=== PATIENT | female | born 1970 | race Hispanic/Latino ===

== ENCOUNTER 2019-04-08 07:17 | Emergency (ER) | payer OTHER ==
[2019-04-08] MEDS ORDERED: KETOROLAC 30 MG/ML INJ ONE (07:35)
[2019-04-08] MEDS ORDERED: dexAMETHasone 10 MG/ML VIAL ONE (07:35)
--- NOTE | 2019-04-08 07:45 | ER ---
Nurse's Notes [facility] Name: Pat Johnson Age: 48 yrs Sex: Female : 1970 Arrival Date: 04/08/2019 Time: 07:21 Bed 19 Private MD: Jaguar Stewart Diagnosis: Intervertebral disc disorders with radiculopathy, lumbar region;Muscle spasm of back Presentation: 04/08 07:25 Presenting complaint: Patient states: yunior been having this L lower back pain for a hj while and yunior been taking ibuprofen and its not helping, its on and off pain; denies N/V;. Transition of care: patient was not received from another setting of care. Onset of symptoms was April 08, 2019. Risk Assessment: Do you want to hurt yourself or someone else? Patient reports no desire to harm self or others. Initial Sepsis Screen: Does the patient meet any 2 criteria? No. Patient's initial sepsis screen is negative. Does the patient have a suspected source of infection? No. Patient's initial sepsis screen is negative. Care prior to arrival: None. 07:25 Method Of Arrival: Ambulatory 07:25 Acuity: CHRISTEL 4 hj Triage Assessment: 07:27 General: Appears in no apparent distress. uncomfortable, obese, Behavior is calm, hj cooperative, appropriate for age. Pain: Complains of pain in back. Musculoskeletal: Circulation, motion, and sensation intact. Capillary refill. Historical: - Allergies: 07:32 No Known Allergies; hj - Home Meds: 07:32 Vitamin D Oral [Active]; hj - PMHx: 07:32 None; hj - PSHx: 07:32 None; hj - Immunization history:: Adult Immunizations up to date. - Social history:: Smoking status: Patient/guardian denies using tobacco, Patient/guardian denies using alcohol. - Ebola Screening: : Patient negative for fever greater than or equal to 101.5 degrees Fahrenheit, and additional compatible Ebola Virus Disease symptoms Patient denies exposure to infectious person Patient denies travel to an Ebola-affected area in the 21 days before illness onset. - Family history:: not pertinent. - Hospitalizations: : No recent hospitalization is reported. Screenin:27 Abuse screen: Denies threats or abuse. Denies injuries from another. Nutritional hj screening: No deficits noted. Tuberculosis screening: No symptoms or risk factors identified. Fall Risk None identified. Vital Signs: 07:26 BP 161 / 97; Pulse 73; Resp 18; Temp 97.9(TE); Pulse Ox 97% on R/A; Weight 113.4 kg; hj Height 5 ft. 1 in. (154.94 cm); Pain 5/10; 07:26 Body Mass Index 47.24 (113.40 kg, 154.94 cm) hj ED Course: 07:21 Patient arrived in ED. mr 07:21 Jaguar Stewart DO is Private Physician. mr 07:21 Khadar Lorenzo MD is Attending Physician. rn 07:25 Rich Lozano RN is Primary Nurse. hj 07:26 Triage completed. hj 07:28 Arm band placed on left wrist. hj 07:28 Patient has correct armband on for positive identification. Bed in low position. Call hj light in reach. Side rails up X 1. Adult w/ patient. 08:09 No provider procedures requiring assistance completed. Patient did not have IV access hj during this emergency room visit. Administered Medications: 07:33 Drug: TORadol - Ketorolac 15 mg Route: IM; Site: right deltoid; hj 08:09 Follow up: Response: No adverse reaction hj 07:33 Drug: Decadron 10 mg Route: IM; Site: right deltoid; hj 08:09 Follow up: Response: No adverse reaction hj Outcome: 07:45 Discharge ordered by . rn 08:10 Discharged to home ambulatory, with family. hj 08:10 Condition: stable 08:10 Discharge instructions given to patient, family, Instructed on discharge instructions, follow up and referral plans. medication usage, Demonstrated understanding of instructions, follow-up care, medications, Prescriptions given X 2. 08:11 Patient left the ED. hj Signatures: Linda Butts mr Khadar Lorenzo MD MD rn Joaquin, Henry, RN RN hj Corrections: (The following items were deleted from the chart) 07:33 07:26 BP 161 / 97; Pulse 73bpm; Resp 18bpm; Pulse Ox 97% RA; Temp 97.9F Temporal; hj 127.01 kg; Height 5 ft. 3 in.; BMI: 49.6; Pain 5/10; hj
--- NOTE | 2019-04-08 07:46 | EDPHYS ---
Physician Documentation [facility] Name: Pat Johnson Age: 48 yrs Sex: Female : 1970 Arrival Date: 04/08/2019 Time: 07:21 Bed 19 Private MD: Jaguar Stewart ED Physician Khadar Lorenzo HPI: 04/08 07:40 This 48 yrs old Female presents to ER via Ambulatory with complaints of Back rn Pain. 07:40 The patient presents with pain that is chronic. The symptoms are located in the low rn back. Onset: The symptoms/episode began/occurred 3 day(s) ago. The pain radiates to the left leg. Associated signs and symptoms: Pertinent negatives: abdominal pain, chest pain, constipation, fever, incontinence, numbness, tingling, urinary retention, vomiting, weakness. Modifying factors: The patient symptoms are alleviated by nothing, the patient symptoms are aggravated by movement. Severity of symptoms: At their worst the symptoms were mild, in the emergency department the symptoms are unchanged. The patient has experienced similar episodes in the past. REports intermittent back pain for months, no injury, reports hurts for days then gets better, works on her feet and constantly leaning towards affected side, no bowel/bladder issues, no weakness, no fever, no urinary symptoms. Hurts to twist and lift left leg.. Historical: - Allergies: 07:32 No Known Allergies; hj - Home Meds: 07:32 Vitamin D Oral [Active]; hj - PMHx: 07:32 None; hj - PSHx: 07:32 None; hj - Immunization history:: Adult Immunizations up to date. - Social history:: Smoking status: Patient/guardian denies using tobacco, Patient/guardian denies using alcohol. - Ebola Screening: : Patient negative for fever greater than or equal to 101.5 degrees Fahrenheit, and additional compatible Ebola Virus Disease symptoms Patient denies exposure to infectious person Patient denies travel to an Ebola-affected area in the 21 days before illness onset. - Family history:: not pertinent. - Hospitalizations: : No recent hospitalization is reported. ROS: 07:40 Constitutional: Negative for fever, chills, and weight loss, Neck: Negative for injury, rn pain, and swelling, Cardiovascular: Negative for chest pain, palpitations, and edema, Respiratory: Negative for shortness of breath, cough, wheezing, and pleuritic chest pain, Abdomen/GI: Negative for abdominal pain, nausea, vomiting, diarrhea, and constipation, Back: + left lower back pain : Negative for injury, bleeding, discharge, and swelling, MS/Extremity: Negative for injury and deformity, Skin: Negative for injury, rash, and discoloration, Neuro: Negative for headache, weakness, numbness, tingling, and seizure. Exam: 07:40 Constitutional: This is a well developed, well nourished patient who is awake, alert, rn and in no acute distress. Cardiovascular: Regular rate and rhythm. No pulse deficits. Respiratory: No increased work of breathing, no retractions or nasal flaring. Abdomen/GI: soft, non-tender Back: No spinal tenderness. No costovertebral tenderness. + left lower perilumbar tenderness, no swelling, no signs of trauma. Skin: Warm, dry with normal turgor. Normal color with no rashes, no lesions, and no evidence of cellulitis. MS/ Extremity: Pulses equal, no cyanosis. Neurovascular intact. Full, normal range of motion. Equal circumference. Neuro: Awake and alert, GCS 15, oriented to person, place, time, and situation. Cranial nerves II-XII grossly intact. Motor strength 5/5 in all extremities. Sensory grossly intact. Cerebellar exam normal. Vital Signs: 07:26 BP 161 / 97; Pulse 73; Resp 18; Temp 97.9(TE); Pulse Ox 97% on R/A; Weight 113.4 kg; hj Height 5 ft. 1 in. (154.94 cm); Pain 5/10; 07:26 Body Mass Index 47.24 (113.40 kg, 154.94 cm) MDM: 07:21 Patient medically screened. rn 07:40 Differential diagnosis: arthritis, chronic back pain, sprain, bulging disc, rn radiculopathy. Data reviewed: vital signs, nurses notes, and as a result, I will discharge patient. Counseling: I had a detailed discussion with the patient and/or guardian regarding: the historical points, exam findings, and any diagnostic results supporting the discharge/admit diagnosis, the need for outpatient follow up, to return to the emergency department if symptoms worsen or persist or if there are any questions or concerns that arise at home. Response to treatment: the patient's symptoms have mildly improved after treatment, and as a result, I will discharge patient. Special discussion: I discussed with the patient/guardian in detail that at this point there is no indication for admission to the hospital. It is understood, however, that if the symptoms persist or worsen the patient needs to return immediately for re-evaluation. Administered Medications: 07:33 Drug: TORadol - Ketorolac 15 mg Route: IM; Site: right deltoid; hj 08:09 Follow up: Response: No adverse reaction hj 07:33 Drug: Decadron 10 mg Route: IM; Site: right deltoid; hj 08:09 Follow up: Response: No adverse reaction hj Disposition: 04/08/19 07:45 Discharged to Home. Impression: Intervertebral disc disorders with radiculopathy, lumbar region, Muscle spasm of back. - Condition is Stable. - Discharge Instructions: Lumbosacral Radiculopathy, Muscle Cramps and Spasms, Back Exercises, [id number]. - Prescriptions for Tramadol 50 mg Oral Tablet - take 1 tablet by ORAL route every 8 hours as needed; 15 tablet. Medrol (Julio) 4 mg Oral Tablets, Dose Pack - take 1 tablet by ORAL route as directed - follow package instructions; 1 packet. - Medication Reconciliation Form, Thank You Letter, Antibiotic Education, Prescription Opioid Use, Work release form form. - Follow up: Private Physician; When: As needed; Reason: Recheck today's complaints, Re-evaluation by your physician. - Problem is new. - Symptoms have improved. Signatures: Khadar Lorenzo MD MD rn Joaquin, Henry, RN RN Corrections: (The following items were deleted from the chart) 07:41 07:40 REports intermittent back pain for months, no injury, reports hurts for days then rn gets better, works on her feet and constantly leaning towards affected side, no bowel/bladder issues, no weakness, no fever, no urinary symptoms. . rn 07:43 07:40 Constitutional: This is a well developed, well nourished patient who is awake, rn alert, and in no acute distress. Abdomen/GI: soft, non-tender Back: No spinal tenderness. No costovertebral tenderness. + left lower perilumbar tenderness, no swelling, no signs of trauma. Skin: Warm, dry with normal turgor. Normal color with no rashes, no lesions, and no evidence of cellulitis. MS/ Extremity: Pulses equal, no cyanosis. Neurovascular intact. Full, normal range of motion. Equal circumference. Neuro: Awake and alert, GCS 15, oriented to person, place, time, and situation. Cranial nerves II-XII grossly intact. Motor strength 5/5 in all extremities. Sensory grossly intact. Cerebellar exam normal. susanna 08:11 07:45 04/08/2019 07:45 Discharged to Home. Impression: Intervertebral disc disorders hj with radiculopathy, lumbar region; Muscle spasm of back. Condition is Stable. Forms are Medication Reconciliation Form, Thank You Letter, Antibiotic Education, Prescription Opioid Use. Follow up: Private Physician; When: As needed; Reason: Recheck today's complaints, Re-evaluation by your physician. Problem is new. Symptoms have improved. rn
== END 2019-04-08 08:11 | disposition home or self-care (01) ==
LOC: ER 07:17
DX: M51.16 Intervertebral disc disorders with radiculopathy, lumbar region (principal); M62.830 Muscle spasm of back
CPT/HCPCS: 96372; 99283; J1100

== ENCOUNTER 2022-07-25 07:32 | Emergency (ER) | payer OTHER ==
--- OUTSIDE RECORDS SUMMARY | 2022-07-25 07:34 | XMS REPORT | Continuity of Care Document ---
:1970 Author Organization [facility] t Address [address] [place] [address] Care Team Providers Name Role Phone Ann Campbell Attending Clinician Unavailable KNOW, DOES_NOT Admitting Clinician Unavailable Payers Payer Name Policy Type Policy Number Effective Date Expiration Date S ource Problems This patient has no known problems. Allergies, Adverse Reactions, Alerts This patient has no known allergies or adverse reactions. Medications This patient has no known medications. Procedures This patient has no known procedures. Encounters Start End Encounter Admission Attending Care Care Encounter Source Date/Time Date/Time Type Type Clinicians Facility Department ID 2020-10-01 Inpatient PONCE StanleyWU [facility] [id number] [facility] 10:12:[address] [place] [address] Results Test Description Test Time Test Comments Results Result Sour e Comments - US ABDOMEN 2020-10-14 COMPLETE 11:19:00 [facility] 1970 Sex: F Patient Name: MARIANNE TEE Unit No: [id number] EXAMS: CPT CODE: [id number] US ABDOMEN COMPLETE [id number] EXAMINATION: - US ABDOMEN COMPLETE. LOCATION: B2. HISTORY: ABNORMAL LFTS. COMPARISON: None. TECHNIQUE: Ultrasound imaging of the liver, gallbladder, biliary tract, spleen, pancreas, kidneys, aorta, and IVC was performed. FINDINGS: The liver is normal in size, measuring 16.7 cm in length. There is heterogenous hepatic echotexture. No focal liver masses are identified. The main portal vein is patent and demonstrates appropriate direction of flow. The gallbladder is normal in size. Gallbladder wall thickness is within normal limits. Mild layering sludge is seen in the gallbladder. There are no shadowing gallstones or pericholecystic fluid. There is no intra or extrahepatic bile duct dilatation with the common bile duct measuring 4.2 mm. The spleen measures 10.2 cm in length, which is within normal limits. The pancreas is not well-visualized due to overlying bowel gas. The visualized portions of the abdominal aorta and IVC are normal in caliber. The kidneys are normal in size. The right kidney measures 11.3 cm, and the left kidney measures 11.2 cm in length. There is no evidence of renal mass, hydronephrosis or urolithiasis. IMPRESSION: Heterogenous hepatic echotexture, which limits evaluation for liver masses. Mild layering sludge in the gallbladder. at 1119 Reported and signed by: Adam Pryor MD CC: Ann Campbell Technologist: Zofia Aguirre [facility] Transcrpt Date/Tm/Trnsp: 10/14/2020 (1119) [email or web address] Orig Print D/T: S: 10/14/2020 (1122) [facility] NAME: MARIANNE TEE [id number] [facility] [address] PHYS: [place] [address] : 1970 AGE: 50 SEX: F LOC: [facility] PHONE #: [phone] EXAM DATE: 10/14/2020 STATUS: REG CLI FAX #: [phone] RADIOLOGY NO: PAGE 1 Signed Report
[2022-07-25 08:26] LABS: Absolute Lymphocytes (CBC) 1.5 K/uL (0.7-4.9); Hematocrit 40.1 % (36.0-45.0); Lymphocytes % 22.6 % (15.3-44.8); MPV 7.7 fL (7.6-11.3); RBC Red Blood Cell Count 4.55 M/uL (3.86-4.86)
[2022-07-25 08:44] LABS: Potassium 3.8 mmol/L (3.5-5.1); Troponin High Sensitivity 5.1 pg/mL (<58.9)
--- NOTE | 2022-07-25 08:55 | RAD REPORT ---
EXAM DESCRIPTION: RAD - Chest Single View - 07/25/2022 8:32 am CLINICAL HISTORY: CHEST PAIN COMPARISON: None TECHNIQUE: AP portable chest image was obtained 07/25/2022 8:32 am . FINDINGS: Lungs are clear. Mild cardiomegaly present without vascular engorgement. Heart size is mag nified by portable technique and body habitus affects. No measurable pleural effusion and no pneumothorax. No acute bony abnormality seen. No acute aortic findings suspected. IMPRESSION: No acute cardiopulmonary process. Mild cardiomegaly is evident without findings of acute failure or volume overload.
--- NOTE | 2022-07-25 10:03 | RAD REPORT ---
EXAM DESCRIPTION: CT - Angio Aorta For Dissection - 07/25/2022 9:25 am CLINICAL HISTORY: right sided chest pain, back pain COMPARISON: Chest exam 07/25/2022 TECHNIQUE: Dynamically enhanced 3 mm thick images of the chest, abdomen, and pelvis were obtained du ring administration of approximately 150mL Isovue 370 IV contrast. Sagittal and coronal reconstructio n images were generated using MIP and reviewed. Exam utilizes a protocol to evaluate entire course of the aorta. All CT scans are performed using dose optimization technique as appropriate and may include automated exposure control or mA/KV adjustment according to patient size. FINDINGS: Aorta is normal in diameter with no dissection or other acute aortic findings. Reconstruct ion images show no significant findings. Pulmonary arteries are normal as well. Heart size is upper normal. No pericardial thickening or effus ion. No mass or infiltrate in the lung parenchyma. No pleural thickening, pleural effusion or pneumothorax . No abnormal mediastinal or hilar mass or lymphadenopathy seen. No chest wall mass or abnormal axillar y lymphadenopathy. Celiac, SMA and renal arteries show no suspicious findings. Solid abdominal viscera and bowel show no significant findings. No mass or abnormal lymphadenopathy. No free air, free fluid or inflammatory stranding. No urinary bladder abnormality. Minimal degenerative change present in the thoracic spine. No acute vertebral body finding. Central c anal detail is inherently limited. Heterogeneous attenuation in the IVC and portal vein is the affect s of mixture between contrast and noncontrast opacified blood. Thrombus is not suspected in these ves sels. IMPRESSION: Negative CT scan of the aorta. No other significant findings on chest, abdomen and pelvis examination.
--- NOTE | 2022-07-25 10:24 | EDPHYS ---
Physician Documentation [facility] Name: Pat Johnson Age: 52 yrs Sex: Female : 1970 Arrival Date: 07/25/2022 Time: 07:37 Bed 13 Private MD: ED Physician Yonis Liang HPI: 07/25 07:52 This 52 yrs old Female presents to ER via Ambulatory with complaints of Chest jmm Pain > 30 y/o - right side radiating to back. 07:52 The patient or guardian reports chest pain that is located primarily in the substernal jmm area. Onset: gradually, this morning. The pain radiates to right back. Associated signs and symptoms: Pertinent negatives: abdominal pain, shortness of breath. The chest pain is described as aching. This is a 52 year old female that presents to the ED with complaints of substernal chest pain with radiation into the right scapular region. Denies abdominal pain, vomiting. Denies cough or fever. . OFFICE MANAGER: 07:51 LMP N/A - Hysterectomy 7 Historical: - Allergies: 07:51 No Known Allergies; jl7 - Home Meds: 07:51 None [Active]; jl7 - PMHx: 07:51 None; jl7 - PSHx: 07:51 section; Total abdominal hysterectomy; jl7 - Immunization history:: Client reports receiving the 2nd dose of the Covid vaccine. - Social history:: Smoking status: Patient denies any tobacco usage or history of. ROS: 07:52 Constitutional: Negative for fever, chills, and weight loss. jmm 07:52 Cardiovascular: Positive for chest pain. 07:52 All other systems are negative. Exam: 07:52 Constitutional: This is a well developed, well nourished patient who is awake, alert, jmm and in no acute distress. Head/Face: atraumatic. Eyes: EOMI, no conjunctival erythema appreciated ENT: Moist Mucus Membranes Neck: Trachea midline, Supple Chest/axilla: Normal chest wall appearance and motion. Cardiovascular: Regular rate and rhythm. No edema appreciated Respiratory: Normal respirations, no respiratory distress appreciated Abdomen/GI: Non distended Back: Normal ROM Skin: General appearance color normal MS/ Extremity: Moves all extremities, no obvious deformities appreciated, no edema noted to the lower extremities Neuro: Awake and alert Psych: Behavior is normal, Mood is normal, Patient is cooperative and pleasant Vital Signs: 07:50 BP 154 / 84; Pulse 77; Resp 17; Temp 97.9; Pulse Ox 95% ; Weight 109.77 kg; Height 5 [facility] ft. 1 in. (154.94 cm); Pain 10; 08:00 BP 163 / 83; Pulse 71; Pulse Ox 99% on R/A; ko1 08:30 BP 191 / 92; Pulse 73; Pulse Ox 99% on R/A; ko1 10:55 BP 178 / 84; Pulse 72; Pulse Ox 99% ; ko1 07:50 Body Mass Index 45.73 (109.77 kg, 154.94 cm) 7 MDM: 07:52 Patient medically screened. [facility] 10:23 Data reviewed: vital signs, nurses notes. ED course: Labs and imaging studies negative. [facility] Patient advised to follow up with pcp and otherwise given strict return precautions. Patient understood and agrees with the plan of care. . 07/25 07:56 Order name: Basic Metabolic Panel; Complete Time: 08:46 [facility] 07/25 07:56 Order name: CBC with Diff; Complete Time: 08:27 [facility] 07/25 07:56 Order name: Troponin HS; Complete Time: 08:46 [facility] 07/25 07:56 Order name: XRAY Chest (1 view); Complete Time: 09:10 [facility] 07/25 07:56 Order name: D-Dimer; Complete Time: 08:44 [facility] 07/25 09:11 Order name: CT Aorta for Dissection; Complete Time: 10:07 [facility] 07/25 07:56 Order name: EKG; Complete Time: 07:57 [facility] 07/25 07:56 Order name: Cardiac monitoring; Complete Time: 08:13 [facility] 07/25 07:56 Order name: EKG - Nurse/Tech; Complete Time: 08:14 [facility] 07/25 07:56 Order name: IV Saline Lock; Complete Time: 08:14 [facility] 07/25 07:56 Order name: Labs collected and sent; Complete Time: 08:14 [facility] 07/25 07:56 Order name: O2 Per Protocol; Complete Time: 08:14 [facility] 07/25 07:56 Order name: O2 Sat Monitoring; Complete Time: 08:14 [facility] Administered Medications: No medications were administered Disposition: 16:16 Co-signature as Attending Physician, Yonis Liang MD I agree with the assessment and kdr plan of care. Disposition Summary: 07/25/22 10:24 Discharge Ordered Location: Home [facility] Condition: Stable jmm Diagnosis - Chest pain, unspecified jmm Followup: jmm - With: Private Physician - When: 2 - 3 days - Reason: Recheck today's complaints, Continuance of care, Re-evaluation by your physician Discharge Instructions: - Discharge Summary Sheet [facility] - Nonspecific Chest Pain, Adult jmm Forms: - Medication Reconciliation Form [facility] - Thank You Letter [facility] - Work release form [facility] - Antibiotic Education [facility] - Prescription Opioid Use [facility] Prescriptions: - Pepcid 20 mg Oral Tablet - take 1 tablet by ORAL route every 12 hours for 10 days; 20 tablet; Refills: 0, jmm Product Selection Permitted Signatures: Dispatcher [employer] EDYonis Coyle MD MD kdr Mickail, Joel, PA PA Nathan Fall RN RN [id number]
--- NOTE | 2022-07-25 10:24 | ER ---
Nurse's Notes [facility] Name: Pat Johnson Age: 52 yrs Sex: Female : 1970 Arrival Date: 07/25/2022 Time: 07:37 Bed 13 Private MD: Diagnosis: Chest pain, unspecified Presentation: 07/25 07:50 Chief complaint: Patient states: Right sided chest pain, sharp, goes through to back jl7 since yesterday morning, hurts worse with movement. Coronavirus screen: Vaccine status: Patient reports receiving the 2nd dose of the covid vaccine. At this time, the client does not indicate any symptoms associated with coronavirus-19. Ebola Screen: No symptoms or risks identified at this time. Initial Sepsis Screen: Does the patient meet any 2 criteria? No. Patient's initial sepsis screen is negative. Does the patient have a suspected source of infection? No. Patient's initial sepsis screen is negative. Risk Assessment: Do you want to hurt yourself or someone else? Patient reports no desire to harm self or others. Onset of symptoms was July 24, 2022. 07:50 Method Of Arrival: Ambulatory [facility] 07:50 Acuity: CHRISTEL 3 jl7 Triage Assessment: 07:51 General: Appears in no apparent distress. uncomfortable, Behavior is calm, cooperative, jl7 appropriate for age. Pain: Complains of pain in anterior aspect of right upper chest Pain radiates to right scapular area Pain currently is 7 out of 10 on a pain scale. Cardiovascular: Patient's skin is warm and dry. 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 - Social history:: Smoking status: Patient denies any tobacco usage or history of. Screenin:00 Abuse screen: Denies threats or abuse. Denies injuries from another. Nutritional ko1 screening: No deficits noted. Tuberculosis screening: No symptoms or risk factors identified. Fall Risk None identified. Assessment: 08:00 General: Appears in no apparent distress. comfortable, Behavior is calm, cooperative, ko1 appropriate for age. Pain: Complains of pain in back and right scapular area and chest and anterior aspect of right upper chest Pain began. Neuro: No deficits noted. Cardiovascular: Reports chest pain. Respiratory: No deficits noted. GI: No deficits noted. : No deficits noted. EENT: No deficits noted. Derm: No deficits noted. Musculoskeletal: No deficits noted. Vital Signs: 07:50 BP 154 / 84; Pulse 77; Resp 17; Temp 97.9; Pulse Ox 95% ; Weight 109.77 kg; Height 5 jl7 ft. 1 in. (154.94 cm); Pain 7/10; 08:00 BP 163 / 83; Pulse 71; Pulse Ox 99% on R/A; ko1 08:30 BP 191 / 92; Pulse 73; Pulse Ox 99% on R/A; ko1 10:55 BP 178 / 84; Pulse 72; Pulse Ox 99% ; ko1 07:50 Body Mass Index 45.73 (109.77 kg, 154.94 cm) 7 ED Course: 07:37 Patient arrived in ED. am2 07:42 Cliff Avalos PA is PHCP. jmm 07:42 Yonis Liang MD is Attending Physician. jm 07:44 Siri Vogt, RN is Primary Nurse. ko1 07:51 Triage completed. jl7 07:51 Arm band placed on right wrist. jl7 08:00 Patient has correct armband on for positive identification. Client placed on continuous ko1 cardiac and pulse oximetry monitoring. NIBP monitoring applied. satellite project site monitor on. 08:00 No provider procedures requiring assistance completed. Inserted saline lock: 20 gauge ko1 in left antecubital area, using aseptic technique. Blood collected. Patient maintains SpO2 saturation greater than 95% on room air. 08:14 Basic Metabolic Panel Sent. ko1 08:14 CBC with Diff Sent. ko1 08:14 Troponin HS Sent. ko1 08:14 D-Dimer Sent. ko1 08:34 XRAY Chest (1 view) In Process Unspecified. EDMS 09:26 CT Aorta for Dissection In Process Unspecified. EDMS 10:55 IV discontinued, intact, bleeding controlled, No redness/swelling at site. Pressure ko1 dressing applied. Administered Medications: No medications were administered Medication: 10:55 VIS not applicable for this client. ko1 Outcome: 10:24 Discharge ordered by . selene 10:55 Discharged to home ambulatory. ko1 10:55 Condition: stable 10:55 Discharge instructions given to patient, Instructed on discharge instructions, follow up and referral plans. medication usage, Demonstrated understanding of instructions, follow-up care, medications, Prescriptions given X 1. 11:01 Patient left the ED. ko1 Signatures: Dispatcher [employer] EDMS Cliff Avalos PA PA jmm Leal, Jahala, RN RN jl7 Elvia Hood am Siri Vogt, BUZZ RN ko1
[2022-07-25 11:19] VITALS: TEMP 97.9
[2022-07-25 11:23] VITALS: O2SAT 99
[2022-07-25 11:28] VITALS: BP 178/84
--- NOTE | 2022-07-26 08:39 | EKG ---
Test Date: 2022-07-25 Test Time: 07:45:58 V Groove Cutter: GRETCHEN MEASUREMENT RESULTS: Intervals: Rate: 68 IL: 186 QRSD: 84 QT: 386 QTc: 410 Fluker: P: 23 IL: 186 QRS: 34 T: 56 INTERPRETIVE STATEMENTS: Normal sinus rhythm Normal ECG No previous ECG available for comparison Electronically Signed On 07-26-22 08:34:57 MAILING MANAGER by Jose Francisco Conti
== END 2022-07-25 11:01 | disposition home or self-care (01) ==
LOC: ER 07:32
DX: R07.89 Other chest pain (principal)
CPT/HCPCS: 93005; 85025; 80048; 36415; 85379; 84484; 71275; 74175; 71045; 99285; Q9967